=== PATIENT | female | born 1985 | race Caucasian/White ===

== ENCOUNTER → 2017-09-09 | Emergency (ER) | payer OTHER ==
[~2017-09-09] VITALS: Ht 162.6 cm; Wt 59.0 kg
== END | disposition home or self-care (01) ==
LOC: ER 10:35
DX: R10.2 Pelvic and perineal pain (principal)

== ENCOUNTER 2019-05-26 14:20 | Emergency (ER) | payer OTHER ==
[~2019-05-26] VITALS: Ht 162.6 cm; Wt 65.3 kg
== END 2019-05-26 15:30 | disposition home or self-care (01) ==
LOC: ER 14:20
DX: R51 Headache (principal)

== ENCOUNTER 2021-02-05 13:54 | Outpatient (CLI) | payer OTHER | END 2021-02-05 14:20 | disposition home or self-care (01) | LOC: SONOGRAMA 13:54 | PROVIDERS: ATTEND Surgery | DX: N60.11 Diffuse cystic mastopathy of right breast (principal); N60.12 Diffuse cystic mastopathy of left breast ==

== ENCOUNTER 2022-11-25 14:14 | Outpatient (CLI) | payer OTHER | END 2022-11-25 14:30 | disposition home or self-care (01) | LOC: SONOGRAMA 14:14 | PROVIDERS: ATTEND Surgery | DX: N60.11 Diffuse cystic mastopathy of right breast (principal); N60.12 Diffuse cystic mastopathy of left breast; D24.1 Benign neoplasm of right breast ==